=== PATIENT | male | born 2000 | race Caucasian/White ===

== ENCOUNTER 2021-02-16 22:45 | Emergency (ER) | payer OTHER ==
[~2021-02-16] VITALS: Ht 182.9 cm; Wt 77.3 kg
[2021-02-16 23:35] VITALS: TEMP 97.9
[2021-02-17] MEDS ORDERED: ROBAXIN 50500 MG/TAB PO (00:08)
[2021-02-17] MEDS ORDERED: TYLENOL 325MG325 MG PO (00:08)
[2021-02-17] MEDS ORDERED: MOTRIN 400400 MG/TAB PO (00:08)
[2021-02-17 00:50] VITALS: BP 114/70; PULSE 67
[2021-02-18] MEDS ORDERED: MOTRIN 400400 MG/TAB PO (06:19)
== END 2021-02-17 00:55 | disposition home or self-care (01) ==
LOC: COL.ER 22:45
DX: S46.912A Strain of unspecified muscle, fascia and tendon at shoulder and upper arm level, left arm, initial encounter (principal); X50.0XXA Overexertion from strenuous movement or load, initial encounter; Y99.0 Civilian activity done for income or pay
CPT/HCPCS: J1885

== ENCOUNTER 2021-02-18 05:33 | Emergency (ER) | payer OTHER ==
[~2021-02-18] VITALS: Ht 182.9 cm; Wt 77.3 kg
[~2021-02-18 05:33] MED LIST: MOTRIN 400400 MG/TAB PO; ROBAXIN 50500 MG/TAB PO; TYLENOL 325MG325 MG PO
[2021-02-18] MEDS ORDERED: MOTRIN 400400 MG/TAB PO (06:19)
[2021-02-18 06:38] LABS: STREP SCREEN NEGATIVE
[2021-02-18 07:16] VITALS: BP 120/64; PULSE 65; TEMP 97.8
== END 2021-02-18 07:16 | disposition home or self-care (01) ==
LOC: COL.ER 05:33
PROVIDERS: Emergency Medicine
DX: J02.9 Acute pharyngitis, unspecified (principal)